=== PATIENT | female | born 1980 | race Caucasian/White ===

== ENCOUNTER 2021-12-08 02:40 | Emergency (ER) | payer MEDICAID ==
[~2021-12-08] VITALS: Ht 162.6 cm; Wt 81.8 kg
--- NOTE | 2021-12-08 03:10 | EKG ---
[facility] [address] [place] [address] Test Date: 2021-12-08 Test Time: 02:51:50 Pat Name: LAITH ANNE Department: Room: Gender: F Improvement Rn: : 1980 Requested By: KIERA GONSALEZ Order Number: [id number] Reading MD: Shay Hurtado Measurements Intervals [place] Rate: 82 P: -39 OK: 96 QRS: 36 QRSD: 110 T: 66 QT: 430 QTc: 506 Interpretive Statements SINUS RHYTHM VENTRICULAR PREMATURE COMPLEX(ES) INCOMPLETE RIGHT BUNDLE BRANCH BLOCK PROLONGED QT Electronically Signed On 12-09-2021 16:44:26 CDT by Shay Hurtado
[2021-12-08 03:12] LABS: BASO # 0.1 x10^3/uL (0.0-0.2); BASO % 1 % (0-3); EOS # 0.1 x10^3/uL (0.0-0.7); EOS % 1 % (0-3); HEMATOCRIT 36.3 % (36.0-47.0); LYMPH # 2.1 x10^3/uL (1.0-4.8); LYMPH % 21 % (24-48); MEAN CORPUSCULAR HEMOGLOBIN 29 pg (25-35); MEAN CORPUSCULAR HGB CONC 33 g/dL (31-37); MEAN CORPUSCULAR VOLUME 87 fL (79-100); MONO # 0.8 x10^3/uL (0.0-1.1); MONO % 8 % (0-9); NEUT # 6.9 x10^3/uL (1.8-7.7); NEUT % 69 % (31-73); PLATELET COUNT 219 x10^3/uL (140-400); RED BLOOD COUNT 4.17 x10^6/uL (3.50-5.40); RED CELL DISTRIBUTION WIDTH 19.6 % (11.5-14.5); WHITE BLOOD COUNT 10.1 x10^3/uL (4.0-11.0)
[2021-12-08 03:22] LABS: PROTHROMBIN TIME PATIENT 14.4 SEC (11.7-14.0)
[2021-12-08 03:25] LABS: D-DIMER 0.56 ug/mlFEU (0.00-0.50)
[2021-12-08 03:26] LABS: CALCIUM 8.5 mg/dL (8.5-10.1); CREATININE 0.8 mg/dL (0.6-1.0); GFR 78.7; POTASSIUM 3.4 mmol/L (3.5-5.1)
[2021-12-08 03:32] LABS: ALBUMIN 3.4 g/dL (3.4-5.0); ALBUMIN/GLOBULIN RATIO 0.8 (1.0-1.7); TOTAL BILIRUBIN 0.7 mg/dL (0.2-1.0); TOTAL PROTEIN 7.8 g/dL (6.4-8.2)
--- NOTE | 2021-12-08 03:42 | PHYS DOC ---
Past Medical History Additional Past Medical Histor: MITRAL VALVE REPLACEMENT 2013 (KIERA GONSALEZ DO) Past Surgical History: Other Additional Past Surgical Histo: MITRAL VALVE REPLACEMENT 2013 (KIERA GONSALEZ DO) Smoking Status: Current Every Day Smoker Alcohol Use: Occasionally (KIERA GONSALEZ DO) General Adult EDM: Chief Complaint: CHEST PAIN HPI: HPI: Patient is a 41 year old female with a history of IV drug use and tricuspid valve repair comes in with chest pain that radiates into the back . Patient states that she was walking during the middle the night when she started to develop the pain. Denies any shortness of breath denies any fevers or chills. Denies diaphoresis. States it feels like pressure denies any sharp pain. Patient is homeless. (KIERA GONSALEZ DO) Review of Systems: Review of Systems: Constitutional: Denies fever or chills. [] Eyes: Denies change in visual acuity. [] HENT: Denies nasal congestion or sore throat. [] Respiratory: Denies cough or shortness of breath. [] Cardiovascular: Chest pain that radiates into the back no radiation no diaphoresis GI: Denies abdominal pain, nausea, vomiting, bloody stools or diarrhea. [] : Denies dysuria. [] Musculoskeletal: Denies back pain or joint pain. [] Integument: Denies rash. [] Neurologic: Denies headache, focal weakness or sensory changes. [] Endocrine: Denies polyuria or polydipsia. [] Lymphatic: Denies swollen glands. [] Psychiatric: Denies depression or anxiety. [] (KIERA GONSALEZ DO) Heart Score: C/O Chest Pain: Yes HEART Score for Chest Pain: HEART Score for Chest Pain Response (Comments) Value History Slighlty/Non-Suspicious 0 ECG Normal 0 Age < 45 0 Risk Factors 1 or 2 Risk Factors 1 Troponin < Normal Limit 0 Total 1 Risk Factors: Risk Factors: DM, Current or recent (<one month) smoker, HTN, HLP, family history of CAD, obesity. Risk Scores: Score 0 - 3: 2.5% MACE over next 6 weeks - Discharge Home Score 4 - 6: 20.3% MACE over next 6 weeks - Admit for Clinical Observation Score 7 - 10: 72.7% MACE over next 6 weeks - Early Invasive Strategies (KIERA GONSALEZ DO) C/O Chest Pain: Yes HEART Score for Chest Pain: HEART Score for Chest Pain Response (Comments) Value History Slighlty/Non-Suspicious 0 ECG Normal 0 Age < 45 0 Risk Factors 1 or 2 Risk Factors 1 Troponin < Normal Limit 0 Total 1 (SERA BAI DO) Allergies: Allergies: Allergies Coded Allergies Type Severity Reaction Last Updated Verified Sulfa (Sulfonamide Antibiotics) Allergy Intermediate 12/08/21 Yes (KIERA GONSALEZ DO) Physical Exam: PE: Constitutional: Well developed, well nourished, no acute distress, non-toxic appearance. [] HENT: Normocephalic, atraumatic, bilateral external ears normal, oropharynx moist, no oral exudates, nose normal. [] Eyes: PERRLA, EOMI, conjunctiva normal, no discharge. [] Neck: Normal range of motion, no tenderness, supple, no stridor. [] Cardiovascular:Heart rate regular rhythm, no murmur [] Lungs & Thorax: Bilateral breath sounds clear to auscultation [] Abdomen: Bowel sounds normal, soft, no tenderness, no masses, no pulsatile masses. [] Skin: Warm, dry, no erythema, no rash. [] Back: No tenderness, no CVA tenderness. [] Extremities: No tenderness, no cyanosis, no clubbing, ROM intact, no edema. [] Neurologic: Alert and oriented X 3, normal motor function, normal sensory function, no focal deficits noted. [] Psychologic: Affect normal, judgement normal, mood normal. [] (KIERA GONSALEZ DO) Current Patient Data: Labs: Laboratory Tests Test 12/08/21 03:01 White Blood Count 10.1 x10^3/uL (4.0-11.0) Red Blood Count 4.17 x10^6/uL (3.50-5.40) Hemoglobin 12.0 g/dL (12.0-15.5) Hematocrit 36.3 % (36.0-47.0) Mean Corpuscular Volume 87 fL (79-100) Mean Corpuscular Hemoglobin 29 pg (25-35) Mean Corpuscular Hemoglobin Concent 33 g/dL (31-37) Red Cell Distribution Width 19.6 % (11.5-14.5) H Platelet Count 219 x10^3/uL (140-400) Neutrophils (%) (Auto) 69 % (31-73) Lymphocytes (%) (Auto) 21 % (24-48) L Monocytes (%) (Auto) 8 % (0-9) Eosinophils (%) (Auto) 1 % (0-3) Basophils (%) (Auto) 1 % (0-3) Neutrophils # (Auto) 6.9 x10^3/uL (1.8-7.7) Lymphocytes # (Auto) 2.1 x10^3/uL (1.0-4.8) Monocytes # (Auto) 0.8 x10^3/uL (0.0-1.1) Eosinophils # (Auto) 0.1 x10^3/uL (0.0-0.7) Basophils # (Auto) 0.1 x10^3/uL (0.0-0.2) Prothrombin Time 14.4 SEC (11.7-14.0) H Prothrombin Time INR 1.2 (0.8-1.1) H D-Dimer (Louisa) 0.56 ug/mlFEU (0.00-0.50) H Sodium Level 139 mmol/L (136-145) Potassium Level 3.4 mmol/L (3.5-5.1) L Chloride Level 104 mmol/L (98-107) Carbon Dioxide Level 26 mmol/L (21-32) Anion Gap 9 (6-14) Blood Urea Nitrogen 20 mg/dL (7-20) Creatinine 0.8 mg/dL (0.6-1.0) Estimated GFR (Cockcroft-Gault) 78.7 BUN/Creatinine Ratio 25 (6-20) H Glucose Level 81 mg/dL (70-99) Calcium Level 8.5 mg/dL (8.5-10.1) Total Bilirubin Pending Aspartate Amino Transferase (AST) Pending Alanine Aminotransferase (ALT) Pending Alkaline Phosphatase Pending Total Protein Pending Albumin Pending Albumin/Globulin Ratio Pending Laboratory Tests 12/08/21 03:01 Laboratory Tests 12/08/21 03:01 Vital Signs: Vital Signs Date Time Temp Pulse Resp B/P (MAP) Pulse Ox O2 Delivery O2 Flow Rate FiO2 12/08/21 02:53 98.4 86 16 146/87 (106) 99 Room Air 98.4 (KIERA GONSALEZ DO) EKG: EKG: EKG demonstrates a normal sinus rhythm with a heart rate of 82 prolonged QT with a QTC of 506 LA interval is 96. (KIERA GONSALEZ DO) Radiology/Procedures: Radiology/Procedures: [] Study: CT CHEST WITH CONTRAST - PULMONARY ANGIOGRAM History: Chest pain. Pulmonary embolism. Comparison: None. Technique: Helical CT of the chest performed after the administration of 100 cc Isovue-370 intravenous contrast and timed for angiographic evaluation of the pulmonary arteries per PE protocol. Coronal and sagittal 3D MIP reformations were obtained. One or more of the following individualized dose reduction techniques were utilized for this examination: 1. Automated exposure control 2. Adjustment of the mA and/or kV according to patient size 3. Use of iterative reconstruction technique. Findings: Pulmonary Arteries: No main, lobar or segmental pulmonary embolus. Upper limits of normal main pulmonary artery caliber. Heart/Systemic Vasculature: Status post median sternotomy and operative changes of the mitral valve. No aortic aneurysm or dissection. Patent visualized great vessels. Mediastinum: No lymphadenopathy or pericardial effusion. Lungs: A few millimetric nodular foci do not warrant dedicated follow-up based on size, per Fleischner guidelines. Minimal bibasilar atelectasis. No pleural effusion. Patent central airways. Neck/Axilla/Body Wall: No significant finding. Upper Abdomen: Areas of renal cortical scarring on the left. The spleen is not fully imaged but is likely at the upper limits of normal for size. Bones: Thoracic dextrocurvature. Chronic wedging at L1. Several Schmorl's nodes. Scattered degenerative changes. Miscellaneous: None. IMPRESSION: 1. No pulmonary embolism or alternative acute abnormality seen throughout the chest. 2. Chronic observations discussed in the body of the report. (KIERA GONSALEZ DO) Course & Med Decision Making: Course & Med Decision Making Pertinent Labs and Imaging studies reviewed. (See chart for details) []Case endorsed to Dr Bai. (KIERA GONSALEZ DO) Course & Med Decision Making The patient remains awake, alert and in no acute distress. The patient's first troponin was within normal limits and the second 1 is actually going downward. Given the time that is a left-sided not believe this is a cardiac injury. Patient also states this pain is actually been going on previous to the reported statement as has been present intermittently for several days. I have encouraged the patient to follow-up with her primary care physician with respect to this phenomenon. Should she develop any substernal chest pain with shor tness of air, advised to return to the emergency department. The patient understands and has agreed to do so. She is nontoxic-appearing resting comfortably. She is stable for discharge. (SERA BAI DO) Dragon Disclaimer: Dragon Disclaimer: This electronic medical record was generated, in whole or in part, using a voice recognition dictation system. (KIERA GONSALEZ DO) Departure Departure Impression: Primary Impression: Atypical chest pain Disposition: HOME / SELF CARE / HOMELESS Patient Instructions: Chest Pain (Nonspecific) Scripts Naproxen Sodium (ANAPROX DS) 550 Mg Tablet 1 TAB PO BID for 5 Days, #10 TAB 0 Refills Prov: SERA BAI DO 12/08/21 KIERA GONSALEZ DO Dec 08, 2021 03:42 SERA BAI DO Dec 08, 2021 08:36
--- NOTE | 2021-12-08 04:17 | RAD ---
Study: XR CHEST 1V Indication: Chest pain. Comparison: None. Findings: Status post median sternotomy. The cardiomediastinal silhouette is at the upper limits of normal size but accentuated by technique. Relatively symmetric son. Mildly increased lung markings. No pleural effusion or pneumothorax. No lobar consolidation. Impression: Possible mild interstitial edema in the setting of mild prominence of the cardiomediastinal silhouett e and previous median sternotomy. Electronically signed by: KAITLIN CARRILLO MD (12/08/2021 4:14 AM) [facility]
[2021-12-08] MEDS ORDERED: CONTRAST GIVEN. MC PRN (04:30)
[2021-12-08] MEDS ORDERED: IOHEXOL 350 MG/ML 100 ML VIAL. IV ONE (04:30)
--- NOTE | 2021-12-08 05:09 | RAD ---
Study: CT CHEST WITH CONTRAST - PULMONARY ANGIOGRAM History: Chest pain. Pulmonary embolism. Comparison: None. Technique: Helical CT of the chest performed after the administration of 100 cc Isovue-370 intraveno us contrast and timed for angiographic evaluation of the pulmonary arteries per PE protocol. Coronal and sagittal 3D MIP reformations were obtained. One or more of the following individualized dose reduction techniques were utilized for this examinat ion: 1. Automated exposure control 2. Adjustment of the mA and/or kV according to patient size 3. Use of iterative reconstruction technique. Findings: Pulmonary Arteries: No main, lobar or segmental pulmonary embolus. Upper limits of normal main pulmon neal artery caliber. Heart/Systemic Vasculature: Status post median sternotomy and operative changes of the mitral valve. No aortic aneurysm or dissection. Patent visualized great vessels. Mediastinum: No lymphadenopathy or pericardial effusion. Lungs: A few millimetric nodular foci do not warrant dedicated follow-up based on size, per Fleischne r guidelines. Minimal bibasilar atelectasis. No pleural effusion. Patent central airways. Neck/Axilla/Body Wall: No significant finding. Upper Abdomen: Areas of renal cortical scarring on the left. The spleen is not fully imaged but is li oc at the upper limits of normal for size. Bones: Thoracic dextrocurvature. Chronic wedging at L1. Several Schmorl's nodes. Scattered degenerati ve changes. Miscellaneous: None. IMPRESSION: 1. No pulmonary embolism or alternative acute abnormality seen throughout the chest. 2. Chronic observations discussed in the body of the report. Electronically signed by: KAITLIN CARRILLO MD (12/08/2021 5:06 AM) [facility]
[2021-12-08] MEDS ORDERED: NAPR-682 PO (08:35)
[2021-12-08 08:54] VITALS: BP 146/74
== END 2021-12-08 08:54 | disposition home or self-care (01) ==
LOC: ER 02:40
DX: R07.89 Other chest pain (principal); F17.200 Nicotine dependence, unspecified, uncomplicated; Z88.2 Allergy status to sulfonamides
CPT/HCPCS: 36415; 71045; 71275; 80053; 83880; 84484; 85025; 85379; 85610; 87040; 93005; 99285; Q9967